=== PATIENT | male | born 1990 | race Caucasian/White ===

== ENCOUNTER 2017-01-26 15:43 | Emergency (ER) | payer MEDICAID ==
[~2017-01-26] VITALS: Ht 177.8 cm; Wt 61.2 kg
--- NOTE | 2017-01-26 16:30 | NUR ---
Pt c/o sore throat, fever (high of 103.5), and cough x 2 days. Pt denies CP, SOB, dizziness, n/v, no other complaints, no distress noted. Gave pt RX and d/c instructions, verbalized understanding.
== END 2017-01-26 16:43 | disposition home or self-care (01) ==
LOC: ER 15:43
DX: J02.9 Acute pharyngitis, unspecified (principal)
CPT/HCPCS: 99283; A4663